=== PATIENT | female | born 1965 | race Caucasian/White ===

== ENCOUNTER 2018-03-31 22:44 | Emergency (ER) | payer OTHER ==
[~2018-03-31] VITALS: Ht 162.6 cm; Wt 65.8 kg
[~2018-03-31 22:44] MED LIST: CIPRO500 MG PO; CYCLOBENZAPRINE5 MG PO; IBUPROFEN600 MG PO; IMITREX25 MG PO; NAPROSYN500 MG PO; NORCO 5-325 TA1 EACH PO; ROBAXIN-750750 MG PO; TRAMADOL HCL50 MG PO; TYLENOL325 MG PO; ZOFRAN4 MG PO
--- OUTSIDE RECORDS SUMMARY | 2018-03-31 22:48 | XMS ---
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 E.Erickson VISIT COUNT (12 MO.) 1 [facility] TOTAL 4 NOTE: Visits indicate total known visits. ED/UCC VISIT TRACKING (12 MO.) 03/31/2018 22:44 [facility] [place] TYPE: Emergency COMPLAINT: - HEADACHE,NAUSEA 01/26/2018 18:44 [facility] [place] TYPE: Emergency DIAGNOSES: - Hand Laceration - Laceration without foreign body of right index finger without damage to nail, initial encounter 12/08/2017 07:43 [facility] [place] [place] TYPE: Emergency COMPLAINT: - PAIN DIAGNOSES: - Unspecified abdominal pain - Urinary tract infection, site not specified - Exposure to other specified factors, initial encounter - Strain of muscle, fascia and tendon of lower back, initial encounter - Nicotine dependence, unspecified, uncomplicated 04[facility]19[facility]2017 12[facility]47 [facility] [place] [facility]: Emergency COMPLAINT: - MUSCLE CRAMPS AND SPASMS DIAGNOSES: - Elevated blood-pressure reading, without diagnosis of hypertension - Muscle spasm of back - Muscle spasm of back - Elevated blood-pressure reading, without diagnosis of hypertension INPATIENT VISIT TRACKING (12 MO.) No inpatient visits to display in this time frame [email or web address]
== END 2018-03-31 23:35 | disposition left against medical advice (07) ==
LOC: ED 22:44
DX: R51 Headache (principal); F17.200 Nicotine dependence, unspecified, uncomplicated
CPT/HCPCS: 99284

== ENCOUNTER 2018-08-05 20:06 | Observation (INO) | payer OTHER ==
[~2018-08-05] VITALS: Ht 162.6 cm; Wt 66.5 kg
--- OUTSIDE RECORDS SUMMARY | ~2018-08-05 | XMS | Clinical Summary ---
Demographics + + + | Address | [address] | | | N | | | [place] [address] | + + + | Home Phone | | + + + | Preferred Language | Unknown | + + + | Marital Status | Single | + + + | Voodoo Affiliation | Unknown | + + + | Race | Unknown | + + + | Ethnic Group | Unknown | + + + Author + + + | Author | [facility] | + + + | Organization | [facility] [employer] | + + + | Address | Unknown | + + + | Phone | Unavailable | + + + Support + + +---------+ + | Name | Relationship | Address | Phone | + + +---------+ + | Jimbo Lin | ECON | Unknown | | + + +---------+ + Care Team Providers + +------+ + | Care Court Officer Name | Role | Phone | + +------+ + | Dr. Fabian | PP | Unavailable | + +------+ + Allergies Not on File Current Medications Not on file Active Problems Not on file Social History + +-------+ +--------+------+ | Tobacco [...] on file | | + + + Plan of Treatment Not on file Results Not on filefrom Last 3 Months"
--- OUTSIDE RECORDS SUMMARY | ~2018-08-05 | XMS | Clinical Summary ---
Demographics + + + | Address | [address] | | | [place] [address] | + + + | Home Phone | | + + + | Preferred Language | Unknown | + + + | Marital Status | Single | + + + | Holiness Affiliation | Unknown | + + + | Race | Unknown | + + + | Ethnic Group | Unknown | + + + Author + + + | Author | [facility] | | | and [place] | + + + | Organization | [facility] | | | and [place] | + + + | Address | Unknown | + + + | Phone | Unavailable | + + + Care Team Providers + +------+ + | Care Tourist Information Officer Name | Role | Phone | [...]
--- OUTSIDE RECORDS SUMMARY | ~2018-08-05 | XMS | Clinical Summary ---
Demographics + + + | Address | [address] | | | N | | | [place] [address] | + + + | Home Phone | | + + + | Preferred Language | Unknown | + + + | Marital Status | Single | + + + | Pentecostalism Affiliation | Unknown | + + + | Race | Unknown | + + + | Ethnic Group | Unknown | + + + Author + + + | Author | [facility] | + + + | Organization | [facility] [facility] | + + + | Address | Unknown | + + + | Phone | Unavailable | + + + Support + + +---------+ + | Name | Relationship | Address | Phone | + + +---------+ + | Jimbo Lin | ECON | Unknown | | + + +---------+ + Care Team Providers + +------+ + | Care Banquet Line Cook Name | Role | Phone | + [...]
--- OUTSIDE RECORDS SUMMARY | ~2018-08-05 | XMS | Clinical Summary ---
Demographics + + + | Address | [address] | | | [place] [address] | + + + | Home Phone | | + + + | Preferred Language | Unknown | + + + | Marital Status | Single | + + + | Jew Affiliation | Unknown | + + + | Race | Unknown | + + + | Ethnic Group | Unknown | + + + Author + + + | Author | [facility] | | | and [place] | + + + | Organization | [facility] | | | and [place] | + + + | Address | Unknown | + + + | Phone | Unavailable | + + + Care Team Providers + +------+ + | Care Signalman Name | Role | Phone | + [...]
--- OUTSIDE RECORDS SUMMARY | ~2018-08-05 | XMS | Clinical Summary ---
Demographics + + + | Address | [address] | | | [place] [address] | + + + | Home Phone | | + + + | Preferred Language | Unknown | + + + | Marital Status | Single | + + + | Episcopal Affiliation | Unknown | + + + | Race | Unknown | + + + | Ethnic Group | Unknown | + + + Author + + + | Author | [facility] | | | and [place] | + + + | Organization | [facility] | | | and [place] | + + + | Address | Unknown | + + + | Phone | Unavailable | + + + Care Team Providers + +------+ + | Care Tool And Gauge Inspector Name | Role | Phone | + [...]
--- OUTSIDE RECORDS SUMMARY | ~2018-08-05 | XMS | Clinical Summary ---
Demographics + + + | Address | [address] | | | N | | | [place] [address] | + + + | Home Phone | | + + + | Preferred Language | Unknown | + + + | Marital Status | Single | + + + | Faith Affiliation | Unknown | + + + | Race | Unknown | + + + | Ethnic Group | Unknown | + + + Author + + + | Author | [facility] | + + + | Organization | [facility] [facility] | + + + | Address | Unknown | + + + | Phone | Unavailable | + + + Support + + +---------+ + | Name | Relationship | Address | Phone | + + +---------+ + | Jimbo Lin | ECON | Unknown | | + + +---------+ + Care Team Providers + +------+ + | Care Computer Systems Hardware Analyst Name | Role | Phone | + [...]
--- OUTSIDE RECORDS SUMMARY | ~2018-08-05 | XMS | Clinical Summary ---
Demographics + + + | Address | [address] | | | [place] [address] | + + + | Home Phone | | + + + | Preferred Language | Unknown | + + + | Marital Status | Single | + + + | Islam Affiliation | Unknown | + + + | Race | Unknown | + + + | Ethnic Group | Unknown | + + + Author + + + | Author | [facility] | | | and [place] | + + + | Organization | [facility] | | | and [place] | + + + | Address | Unknown | + + + | Phone | Unavailable | + + + Care Team Providers + +------+ + | Care Bog Cutter Name | Role | Phone | + [...]
--- OUTSIDE RECORDS SUMMARY | ~2018-08-05 | XMS | Clinical Summary ---
Demographics + + + | Address | [address] | | | N | | | [place] [address] | + + + | Home Phone | | + + + | Preferred Language | Unknown | + + + | Marital Status | Single | + + + | Christianity Affiliation | Unknown | + + + | Race | Unknown | + + + | Ethnic Group | Unknown | + + + Author + + + | Author | [facility] | + + + | Organization | [facility] | + + + | Address | Unknown | + + + | Phone | Unavailable | + + + Support + + +---------+ + | Name | Relationship | Address | Phone | + + +---------+ + | Jimbo Lin | ECON | Unknown | | + + +---------+ + Care Team Providers + +------+ + | Care Sawmill Supervisor Name | Role | Phone | + [...]
--- OUTSIDE RECORDS SUMMARY | 2018-08-05 20:10 | XMS ---
PreManage Notification: ORION TORRES Security Adjustment Clerk Events 1 event(s) in the past 18 months Most recent security events: Elopement at [facility] 03/31/2018 22:44 - Other Details: PATIENT GAYLA LOZANO. CRITERIA MET - Group Notification CARE PROVIDERS SKY [facility] PHONE: Unknown Kayley has no Care Guidelines for this patient. E.D. VISIT COUNT (12 MO.) 1 [facility] 3 [facility]. TOTAL 4 NOTE: Visits indicate total known visits. ED/UCC VISIT TRACKING (12 MO.) 08/05/2018 20:07 [facility] [place] TYPE: Emergency COMPLAINT: - FLANK PAIN 03/31/2018 22:44 [facility] [place] TYPE: Emergency COMPLAINT: - HEADACHE,NAUSEA DIAGNOSES: - Headache - Nicotine dependence, unspecified, uncomplicated 01/26/2018 18:44 [facility] [place] TYPE: Emergency DIAGNOSES: - Hand Laceration - Laceration without foreign body of right index finger without damage to nail, initial encounter 12/08/2017 07:[address] [facility] [place] TYPE: Emergency COMPLAINT: - PAIN DIAGNOSES: - Unspecified abdominal pain - Urinary tract infection, site not specified - Exposure to other specified factors, initial encounter - Strain of muscle, fascia and tendon of lower back, initial encounter - Nicotine dependence, unspecified, uncomplicated INPATIENT VISIT TRACKING (12 MO.) No inpatient visits to display in this time frame [email or web address]
--- NOTE | 2018-08-06 01:27 | NUR ---
RECIEVED REPORT FROM ER NURSE VIA TELEPHONE. ALL QUESTIONS ANSWERED. WAITING FOR PATIENT TO ARRIVE TO THE FLOOR AT THIS TIME.
--- NOTE | 2018-08-06 02:09 | NUR ---
PT ARRIVED TO THE UNIT VIA STRETCHER. RR IS EVEN AND NONLABORED. PT IS IN BED AND ORIENTED TO THE UNIT. HX ADMISSION IS COMPLETE AND CALL LIGHT IS CLOSE. PT DENIES FURTHER NEEDS AT THIS TIME. CALL LIGHT IS WITHIN REACH.
--- NOTE | 2018-08-06 03:55 | NUR ---
INITIAL ASSESSMENT COMPLETE. PT ON RA, VSS. PT DENIES PAIN AT THIS TIME. PT DROWSY, BUT AWAKENS EASILY. RR WNL. NO DISTRESS NOTED. IV FLUIDS INFUSING PER MD ORDERS, IV SITE WNL. PT NPO, LEMON MOUTH SWAB AT BEDSIDE PER PT REQUEST. PT SBA WITH AMBULATION, USES CALL LIGHT APPROPERAITELY. RECENTLY VOIDED X1. PT DENIES ADDITIONAL NEEDS AT THIS TIME, CALL LIGHT IN REACH.
--- NOTE | 2018-08-06 04:40 | NUR ---
ROUNDED ON PT RESTING IN BED WITH EYES CLOSED, RESPIRATORY RATE IS EVEN AND UNLABORED. CALL LIGHT WITHIN REACH. NO SIGNS OF DISTRESS.
--- NOTE | 2018-08-06 06:02 | NUR ---
VITALS AND I&OS DONE AND CHARTED. HELPED PT TO THE BATHROOM AND BACK TO BED. BEDSIDE TABLE AND CALL LIGHT IN REACH. PT NEEDS NOTHING MORE AT THIS TIME.
--- NOTE | 2018-08-06 06:15 | NUR ---
ROUNDED ON PATIENT FOR MEDICATON ADMINISTRATION. PATIENT RESTING IN BED WITH EYES CLOSED, RESPIRATORY RATE IS EVEN AND UNLABORED. PT EASILY AWOKE TO NURSING STAFF TALKING TO PT. PT REPORTS ABD TENDERNESS IN RUQ, REPORTS "8/10" PAIN IN RUQ, PRN PAIN MEDICATION ADMINSTERED PER MAY ORDER. DR. DONOHUE IN ROOM TO VISIT WITH PT. CALL LIGHT WITHIN REACH. NO MORE NEEDS AT THIS TIME. FOCUSED ABD ASSESSMENT COMPLETE.
--- NOTE | 2018-08-06 07:05 | NUR ---
ROUNDED ON PATIENT FOR MEDICATION ADMINISTRATION PER ORDER. REASSESSED PT PAIN TO BE A "4/10" IN RUQ. PT DENIES ANYMORE NEEDS AT THIS TIME. CALL LIGHT WITHIN REACH.
--- NOTE | 2018-08-06 07:45 | NUR ---
Report recieved from Leann GUZMAN.
--- NOTE | 2018-08-06 07:55 | NUR ---
PATIENT RESTING IN BED. CALL LIGHT WITHIN REACH. NO OTHER NEEDS AT THIS TIME
--- NOTE | 2018-08-06 08:20 | NUR ---
PT DROWSY AT THIS TIME, AWAKENS TO VOICE AND ANSWERS QUESTIONS AND FALL RIGHT BACK TO SLEEP. SHE STATES HER PAIN LEVEL IS A 6/10 WHICH SHE STATES IS ACCEPTABLE. CALL LIGHT WITHIN REACH.
--- NOTE | 2018-08-06 09:05 | NUR ---
PATIENT RESTING IN BED. VITAL SIGNS AND I&O DONE. CALL LIGHT WITHIN REACH. NO OTHER NEEDS AT THIS TIME
--- NOTE | 2018-08-06 10:03 | NUR ---
PT GIVEN AN IS AND INSTRUCTED IN IT'S USE. PT USING THE IS AT THIS TIME.
--- NOTE | 2018-08-06 10:12 | CONS ---
[facility] [address], [place] [address] Signed DATE OF CONSULTATION: 08/06/2018 CHIEF COMPLAINT: Abdominal distention and right upper quadrant abdominal pain. HISTORY OF PRESENT ILLNESS: La is a 53-year-old female who is generally healthy except for her smoking. She developed abdominal distention, right upper quadrant abdominal pain. She came to emergency room for evaluation. She was tender in the right upper quadrant with a normal white count. Her liver function tests were unremarkable. Beta-hCG was negative. CT scan of the abdomen and pelvis showed some gallstones and mild pericholecystic fluid. The gallbladder ultrasound confirmed multiple gallstones with gallbladder wall slightly thickened at 4 mm, but an unremarkable common bile duct at 4 mm. Again, some mild pericholecystic fluid and positive Gonzalez sign. Consequently, I was asked to admit her as a general surgeon on-call. Overnight, she has been hydrated and given antibiotics and pain control. However, pain continues. She just had some Dilaudid as I came into the room this morning. PAST MEDICAL HISTORY: Supraumbilical epigastric hernia and migraine headaches. PAST SURGICAL HISTORY: Laparoscopic appendectomy, bilateral tubal ligation, and multiple D and C's. SOCIAL HISTORY: She smokes three-fourth to one pack of cigarettes a day. She does not drink. She has five children. Her 12-year-old son in an ATV accident. 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 She drives and has a front end driver's license. Her optical effects line up person is her daughter, at [phone]. She has no primary care provider. FAMILY HISTORY: Dad had coronary artery disease and had at least two open-heart surgeries. Mom had a hysterectomy for unknown reasons. Daughter is struggling with ovarian cancer. REVIEW OF SYSTEMS: She had 10 systems reviewed and she had nothing specifically new to add. ALLERGIES: None. MEDICATIONS: None. Electronically Signed By: GALE DONOHUE MD 08/06/18 1012 PATIENT NAME: LA TORRES CONSULTATION DATE OF : 61 REPORT #: [id number] PHYSICIAN: GALE DONOHUE MD PCP: NO PRIMARY CARE PHYSICIAN REPORT IS CONFIDENTIAL AND NOT TO BE RELEASED WITHOUT AUTHORIZATION [facility] [address] [place], [place] [address] Signed PHYSICAL EXAMINATION: VITAL SIGNS: Her blood pressure is 134/63, heart rate 70, respiratory rate 17, temperature is 98. She is 96% on room air she is 5 feet 4 inches and 66 kg. GENERAL: La is a 53-year-old female, who is lying supine in her hospital bed. Her nurse is with us in the room. She does not appear systemically ill or toxic. She is not jaundiced. It is clear, she has been a long-time smoker. She does appear older than her stated age. LUNGS: Mildly distant breath sounds. HEART: Regular rate and rhythm. ABDOMEN: Soft and flat, and she just received some Dilaudid and she therefore has mild tenderness in the right upper quadrant. LABORATORY DATA: Her white blood count 5.5, hemoglobin is 11.9, neutrophils 41. Electrolytes unremarkable. Her total bilirubin 0.2, AST 16, ALT 14, alkaline phosphatase 73, albumin 3.9, lipase 32. Beta HCG negative. BUN 16, creatinine 0.8. RADIOGRAPHIC STUDIES: Reviewed. The CT scan showed some gallstones with some trace pericholecystic fluid. Gallbladder ultrasound also showed multiple gallstones with trace pericholecystic fluid along with a 4 mm gallbladder wall, a 4 mm common bile duct and a positive Gonzalez sign. ASSESSMENT AND PLAN: La is a 53-year-old female, who presents with acute cholecystitis cholelithiasis along with some mild anemia. She has been admitted, given IV fluids and antibiotics and pain control. I have reviewed the above findings with her along with the location of function of the gallbladder. We discussed laparoscopic versus open cholecystectomy. She has been through a laparoscopic appendectomy, so she is somewhat familiar with the process. We did review the risks including, but not limited to bleeding, infection, scarring, change in contour the skin, damage to bowel, damage to main bile duct, incisional hernias and other unforeseen comorbidities such as pneumonia, stroke and pulmonary emboli and deep vein thrombosis. We also reviewed the expected intraop and postop course. I also explained that she is in an added on and her surgery will be done quite late today. She may or may not stay overnight depending on the timing. She has expressed understanding and agreed above plan. Gale Donohue MD ALB/MODL /[id number] Electronically Signed By: GALE DONOHUE MD 08/06/18 1012 PATIENT NAME: LA TORRES CONSULTATION DATE OF : 61 REPORT #: [id number] PHYSICIAN: GALE DONOHUE MD PCP: NO PRIMARY CARE PHYSICIAN REPORT IS CONFIDENTIAL AND NOT TO BE RELEASED WITHOUT AUTHORIZATION [facility] [address] [place] [address] Signed cc: Gale Donohue MD Copies: GALE DONOHUE MD ~ Electronically Signed By: GALE DONOHUE MD 08/06/18 1012 PATIENT NAME: LA TORRES CONSULTATION DATE OF : 61 REPORT #: [id number] PHYSICIAN: GALE DONOHUE MD PCP: NO PRIMARY CARE PHYSICIAN REPORT IS CONFIDENTIAL AND NOT TO BE RELEASED WITHOUT AUTHORIZATION
--- NOTE | 2018-08-06 10:15 | NUR ---
PT COMPLAINS OF PAIN AND WAS MEDICATED ORDERD, SEE EMAR. SCD'S PLACED.
[2018-08-06] MEDS ORDERED: IBU-200200 MG PO (11:33)
--- NOTE | 2018-08-06 11:33 | NUR ---
MED REC COMPLETE
--- NOTE | 2018-08-06 12:30 | NUR ---
MEGAN BARNHART VISITED WIT SD REGARDING HOW UPSET PT GOT WHEN INSTRUCTED THAT SHE IS TO HAVE A CHEST X-RAY. FOLLOWED UP WITH PT-SHE WAS SOMEWHAT DROWSY, BUT VISIT WAS POSITIVE,AND ANSWERS WERE ON POINT WITH NO CONFUSION. SHE STATED THAT DR. DONOHUE WILL BE DOING HER SURGERY LATER THIS PM.PT REQUESTED PRAYER WILL FOLLOW NEEDED
--- NOTE | 2018-08-06 12:53 | NUR ---
PATIENT RESTING IN BED. VITAL SIGNS AND I&O DONE. CALL LIGHT WITHIN REACH. NO OTHER NEEDS AT THIS TIME
--- NOTE | 2018-08-06 13:26 | NUR ---
PT STATES SHE HAS A RAMIREZ. SHE STATES SHE NORMALY HAS COFFEE EVERY MORNING WHICH SHE DID NOT HAVE. PT ASKED FOR SOMETHING FOR THE RAMIREZ AND FELL RIGHT BACK TO SLEEP.
--- NOTE | 2018-08-06 14:09 | NUR ---
PT OFF THE FLOOR AND WENT TO SURGERY.
--- NOTE | 2018-08-06 16:20 | NUR ---
08/06/18 1619 Ju[place] Person 1612 PATIENT ARRIVES TO PACU SLEEPING, UNRESPONSIVE TO VERBAL STIMULI. RESP EVEN AND UNLABORED, MASK AT 6 LITERS. 1615 PATIENT OPENS EYES WITH REPEATED VERBAL STIMULI, THEN BACK TO SLEEP. RESP EVEN AND UNLABORED, MASK AT 6 LITERS.
--- NOTE | 2018-08-06 17:26 | NUR ---
1715: PT ARRIVED BACK TO HER ROOM FROM PACU. BEDSIDE REPORT RECIEVED FROM MARIA R GUZMAN. PT AMBULATED WITH ASSIST TO THE BR AND VOIDED 250 ML OF YELLOW URINE. PT HELPED BACK TO BED. INCISION SITE DRESSING CDI WITH ICE IN PLACE. SCD'S PLUGGED BACK IN AND TURNED ON. PT STATES HER PAIN IS "NOT BAD" RATING IT AT A 2/10. VSS AT THIS TIME. PT QUICKLY BACK TO SLEEP.
--- NOTE | 2018-08-06 17:30 | NUR ---
D5LR RESTARTED AT 100 ML ORDERED.
--- NOTE | 2018-08-06 17:33 | EKG ---
[facility] [address] [facility] [place], [place] [address] Signed Sinus bradycardia Otherwise normal ECG No previous ECGs available Confirmed by KENDAL OLIVEIRA DO ([id number]) on 08/06/2018 5:33:05 PM Electronically Signed By: KENDAL OLIVEIRA DO 08/06/18 1733 PATIENT NAME: ORION TORRES Electrocardiogram DATE OF : 61 PHYSICIAN: KENDAL OLIVEIRA DO REPORT #: [id number] REPORT IS CONFIDENTIAL AND NOT TO BE RELEASED WITHOUT AUTHORIZATION
--- NOTE | 2018-08-06 18:19 | NUR ---
PATIENT RESTING IN BED. VITAL SIGNS AND I&O DONE. CALL LIGHT WITHIN REACH. NO OTHER NEEDS AT THIS TIME
--- NOTE | 2018-08-06 18:25 | NUR ---
PT DENIES ANY NAUSEA AFTER HAVING DRANK SOME FLUIDS. SHE WAS GIVEN SOME CRACKERS AND IS NOW EATING THEM.
--- NOTE | 2018-08-06 18:30 | NUR ---
PT WAS NOTIFIED THAT THE ORDER STATES SHE CAN BE DC'D TO HOME TONIGHT OR TOMORROW MORNING. SHE WAS NOTIFIED THAT IF SHE WISHES TO GO HOME TONIGHT SHE SHOULD HAVE A FAMILY MEMBER COME IN AND GUNITE NOZZLE OPERATOR HER SCRIPT AND TAKE IT TO HER RX AND GET IT FILLED WHEN THE RX REMAINS OPEN. SHE STATES SHE IS STILL DECIDING WHAT SHE WILL DO.
--- NOTE | 2018-08-06 18:33 | NUR ---
PT HAD HER LAP MATTI AND EPIGASTIC HERNIA REPAIR TODAY. SHE IS DOING WELL POST-OP WITHOUT COMPLICATIONS AND HER DRESSINGS ARE CDI. DC ORDERS HAVE BEEN RECEIVED FOR THE PT TO GO HOME TONIGHT OR IN THE MORNING.
--- NOTE | 2018-08-06 18:49 | NUR ---
PT RESTING IN HER BED, SHE STATES HER PAIN IS WELL CONTROLED AND SHE DENIES THE NEED FOR ANY PAIN MEDICATIONS AT THIS TIME. PT HAS BEEN TAKING FLUIDS AND CRACKERS AND CONTINUES TO DENIE ANY NAUSEA.
--- NOTE | 2018-08-06 19:00 | NUR ---
CALL LIGHT ANSWERED. PATIENT GOES TO USE BATHROOM. ONE PERSON ASSISTING. PATIENT BACKS TO BED. CALL LIGHT WITHIN REACH. NO OTHER NEEDS AT THIS TIME
--- NOTE | 2018-08-06 19:11 | NUR ---
RECIEVED REPORT FROM BRONWYN GUZMAN. PATIENT LAYING AWAKE IN BED WITH IV FLUIDS INFUSING PER ORDER. PT RATES PAIN A "4-5/10", DENIES WANTING PRN PAIN MEDICATION AT THIS TIME. CALL LIGHT WITHIN REACH. WHITE BOARD UPDATED.
--- NOTE | 2018-08-06 19:40 | NUR ---
ROUNDED ON PATIENT FOR POST OP VITALS, VSS. DRESSING ON ABD IS CDI, SCANT AMOUNT OF SHADOWING PRESENT. PT REPORTS "8/10" PAIN IN ABD, PRN PAIN MEDICATION ADMINISTERED PER ORDER. PT REPORTS FEELING "BLOATED" AND "VERY FULL". ICE IN PLACE. SCDs IN PLACE. CALL LIGHT WITHIN REACH. PT DENIES ANYMORE NEEDS AT THIS TIME.
--- NOTE | 2018-08-06 19:53 | NUR ---
PT'S IV PUMP WAS BEEPING, FIX IT AND PT DENIES FURTHER NEEDS. CALL LIGHT IS WITHIN REACH.
--- NOTE | 2018-08-06 20:53 | NUR ---
ASSISTED PT TO THE RESTROOM, AND BACK TO BED. SHE SAID HER SISTER IS ON HER WAY TO PICK HER UP. PT HAS MET DC CRITERIA, WILL LET PRIMARY RN KNOW.
--- NOTE | 2018-08-06 21:20 | NUR ---
ASSESSMENT COMPLETE. MEDICATIONS ADMINISTERED PER ORDER. PT REPORTS "12/" PAIN IN RIGHT SIDE OF ABD. PRN PAIN MEDICATION ADMINISTERED PER ORDER BY SUPERVISIOR. PT STATED, "I JUST WANT A CIGARETTE", SUPERVISIOR PROVIDED PT WITH SUCKERS/HARD CANDY. PT DECIDED TO STAY THE NIGHT IN HOSPITAL FOR MORE PAIN MANAGEMENT INTERVENTIONS, INSTEAD OF DISCHARGING HOME THIS EVENING. PT VISIBLY UPSET AND CRYING, THERAPEUTIC COMMUNICATION PROVIDED. FAMILY AT BEDSIDE. PT DENIES CHEST PAIN, SHORTNESS OF BREATH OR DIFFICULTY BREATHING. HYPOACTIVE BT NOTED, PT DENIES PASSING FLATUS. DENIES NUMBNESS AND TINGLING IN EXTREMITIES. SCDs IN PLACE. IV FLUIDS INFUSING PER MAR ORDER. DRESSING ON ABD IS CDI, WITH SMALL AMOUNT OF SHADOWING PRESENT. CALL LIGHT WITHIN REACH. PT DENIES ANYMORE NEEDS AT THIS TIME.
--- NOTE | 2018-08-06 21:51 | NUR ---
patients VS and I&Os are complete.
--- NOTE | 2018-08-06 22:43 | NUR ---
ROUNDED ON PATIENT RESTING AWAKE IN BED EATING CRACKERS. NEW ICE PACK AND CHAPSTICK APPLIED TO PATIENT. PT STATES PAIN IS DOING "BETTER" AND RATES PAIN IN RUQ A "5/10". CALL LIGHT WITHIN REACH. PT DENIES ANYMORE NEEDS AT THIS TIME.
--- NOTE | 2018-08-06 22:55 | NUR ---
patient used call light to ask to go to restroom. she resulted and got back into bed and didnt need anything else at this time.
--- NOTE | 2018-08-07 00:08 | NUR ---
ROUNDED ON PT RESTING IN BED WITH EYES CLOSED, REPIRATORY RATE IS EVEN AND UNLABORED. NO SIGNS OF TENSING OR GRIMACING. NEW BAG HUNG OF CONTINOUS IV FLUIDS PER ORDER. CALL LIGHT WITHIN REACH.
--- NOTE | 2018-08-07 00:45 | NUR ---
ASSISTED PT TO THE RESTROOM SBA. SHE IS BACK IN BED AT THIS TIME. WE DISCUSSED KEEPING ON TOP OF HER PAIN MEDICINE TO ENSURE THAT SHE HAS PROPER PAIN CONTROL WITH ORAL MED AND TRYING TO AVOID IV MEDICATIONS. SHE AGREED AND THIS RN NOTIFIED PT'S PRIMARY RN GIULIA. PT DENIES FURTHER NEEDS AT THIS TIME. CALL LIGHT IS CLOSE.
--- NOTE | 2018-08-07 00:50 | NUR ---
ROUNDED ON PATIENT RESTING AWAKE IN BED. PT REPORTS "3/10" PAIN IN ABD, PRN PAIN MEDICATION ADMINSTERED PER ORDER. PUDDING AND CRACKER PROVIDED TO PT BY GRUBBER. PT DISPLAYS IMPROVED SPIRITS AND DEMEANOR. SCDs IN PLACE. CALL LIGHT WITHIN REACH. PT DENIES ANYMORE NEEDS AT THIS TIME.
--- NOTE | 2018-08-07 03:40 | NUR ---
ASSESSMENT COMPLETE. PT DENIES CHEST PAIN, SHORTNESS OF BREATH OR DIFFICULTY BREATHING. PT REPORTS PAIN IN ABD A "10/10", [facility] PAIN MEDICATION ADMINISTERED PER ORDER. HYPOACTIVE BT, PT DENIES PASSING FLATUS, ABD SOFT. SMALL AMOUNT OF SHADOWING PRESENT ON DRESSING. PT DENIES NUMBNESS AND TINGLING IN EXTREMITIES. CLEAR LUNG SOUNDS NOTED, NO SIGNS OF DISTRESS. IV FLUIDS INFUSING PER ORDER. CALL LIGHT WITHIN REACH. PT DENIES NEEDS AT THIS TIME.
--- NOTE | 2018-08-07 05:13 | NUR ---
CHARGE NURSE SYLVESTER AND SUPERVISIOR LAURA AWARE OF PT'S HIGH BLOOD PRESSURES VITALS WERE BEING ASSESSED. SUPERVISIOR LAURA REASSESSED PT'S BLOOD PRESSURE TO BE "196/98" @ 0423. PT REPORTED HAVING "9-10/10", PRN PAIN MEDICATIONS ADMINISTERED. PLAN TO REASSESS PT'S BLOOD PRESSURE AFTER PAIN MANAGMENT INTERVENTIONS TO ASSESS WHETHER ELEVATED BLOOD PRESSURES WERE RELATED TO PAIN. BLOOD PRESSURE REASSESSED AT 0513 TO BE "179/98". PT RATED PAIN A "5/10" AT 0525.
--- NOTE | 2018-08-07 05:25 | NUR ---
ROUNDED ON PATIENT LAYING AWAKE IN BED. PT REPORTS PAIN IS A "5/10". PT DENIES ANY FURTHER NEEDS AT THIS TIME. CALL LIGHT WITHIN REACH.
--- NOTE | 2018-08-07 06:25 | NUR ---
NOTIFIED DR. DONOHUE OF PT'S HIGH BLOOD PRESSURES DURING THE SHIFT AND PT'S PAIN MANAGEMENT. NEW ORDERS FROM DR. DONOHUE TO D/C IV FLUIDS, VERIFIED ORDER VIA READ BACK METHOD.
--- NOTE | 2018-08-07 07:00 | NUR ---
PT SITTING UP IN CHAIR, STATES PAIN IS TOLERABLE AT 2/10 AND STATES SHE WOULD LIKE TO KEEP IT BELOW A 4/10. PT DENIES NEEDS/CONCERNS. BEDSIDE REPORT RECEIVED FROM MEGAN PLATT. CALL LIGHT AND H2O IN REACH.
--- NOTE | 2018-08-07 08:00 | NUR ---
IN TO SEE PATIENT, PT ATE BREAKFAST 100% AND BACK TO BED FROM CHAIR WITH SBA PER HER REQUEST. PT REPORTS PAIN OF 4/10 SO PRN PO NORCO ADMINISTERED. ASSESSMENT COMPLETED. CALL LIGHT AND H2O IN REACH. PT STATES "I HOPE I CAN GO HOME HERE THIS MORNING" DR DONOHUE IN TO ROOM AND CONFIRMS PT MAY DISCHARGE THIS AM. PT REQUESTS WORK NOTE AND DR DONOHUE AGREES TO PROVIDE THIS TO PATIENT. NO FURTHER NEEDS/CONCERNS VOICED.
--- NOTE | 2018-08-07 08:10 | OR ---
[facility] [address] [place], [place] [address] Signed DATE OF OPERATION: 08/06/2018 SURGEON: Gale Martines MD PREOPERATIVE DIAGNOSES: 1. Acute cholecystitis, cholelithiasis. 2. Epigastric hernia (10 mm). POSTOPERATIVE DIAGNOSES: 1. Acute cholecystitis, cholelithiasis. 2. Epigastric hernia (10 mm). PROCEDURE PERFORMED: Laparoscopic cholecystectomy with intraoperative cholangiogram. ESTIMATED BLOOD LOSS: None. FINDINGS: La had a 10 mm epigastric hernia containing incarcerated fat. The gallbladder was somewhat thickened and edematous. She had multiple 8 mm yellow cholesterol stones in the gallbladder. The intraoperative cholangiogram was unremarkable. INDICATIONS: La is a 53-year-old female, who came to emergency room with abdominal distention and right upper quadrant abdominal pain. Laboratory work was not particularly concerning other than some mild anemia. Her anemia panel still pending. CT scan and pelvis was performed and there seemed to be some gallstones with some mild pericholecystic fluid. The gallbladder ultrasound was then done and the gallbladder wall was a little thickened at 4 mm with multiple stones and some pericholecystic fluid and positive Gonzalez sign. The common bile duct was normal at 4 mm. I was asked to admit her as a general surgeon on-call. She has received her Rocephin and Flagyl. She has been hydrated given pain control. I met with La early this morning. I reviewed with her the above findings. We reviewed the location and function of the gallbladder. We reviewed laparoscopic versus open cholecystectomy. She understands expected intraop and postop course. There is risk of surgery including, but not limited to bleeding, infection, scarring, change in contour of the skin, damage to bowel, damage to main bile duct, and incisional hernias. We also reviewed her epigastric hernia and we could place our camera through this and then close it primarily when we were done. She had expressed understanding and wished to proceed. Electronically Signed By: GALE MARTINES MD 08/07/18 0810 PATIENT NAME: LA TORRES OPERATIVE REPORT DATE OF : 61 REPORT #: [id number] PHYSICIAN: GALE MARTINES MD PCP: NO PRIMARY CARE PHYSICIAN REPORT IS CONFIDENTIAL AND NOT TO BE RELEASED WITHOUT AUTHORIZATION [facility] [address] [place], [place] [address] Signed DESCRIPTION OF PROCEDURE: La was taken in to the operating room and placed in the supine position under general endotracheal tube anesthesia. She was on her preoperative antibiotics and subcutaneous heparin. SCDs were utilized. She was then prepped and draped in the usual sterile fashion. We could easily feel her supraumbilical epigastric hernia. A vertical supraumbilical midline incision was made and carried down around the herniated fat. The herniated fat was amputated and passed off the field with the help of cautery. The fascial defect was about 10 mm. The Sofia trocar was placed under direct visualization without difficulty. The abdomen was insufflated and the camera introduced. The remaining trocars were then placed under direct visualization of the camera without difficulty. The gallbladder was then grasped and elevated of the right upper quadrant. Findings are as above. The triangle of Calot was dissected free and the clip was placed on the cystic artery and divided. The intraoperative cholangiocatheter was inserted into the cystic duct. The intraoperative cholangiogram was then performed. The cystic duct stump was secured with a PDS Endoloop and 2 clips were placed across the cystic duct stump to ree its location. After this, the gallbladder was carefully and slowly removed from the gallbladder fossa with the help of the cautery. We noted the edema in the surgical planes. The gallbladder was then placed into an EndoCatch bag. The right upper quadrant was irrigated and suctioned out until clear. We used our laparoscopic suturing device to pass 0 Vicryl suture on either side of the fascia of the subxiphoid trocar site. This was tied down to close this fascia primarily. After this, all the gas was allowed to escape and all trocars were removed along with the gallbladder. The gallbladder was opened on the back table by our circulating nurse. Pictures were taken for photodocumentation. After this, the epigastric hernia fascial defect was closed transversely with a running #1 Prolene suture. Local anesthetic was then copiously injected into all trocar sites. Each trocar site was irrigated and suctioned out until clear. The skin and dermis of each trocar site were closed with interrupted 3-0 subcuticular Monocryl sutures. Dry gauze and tape were applied to all incisions. La was awakened from anesthesia, extubated in the OR, and taken to recovery room in stable condition. Gale Martines MD ALB/MODL /[id number] Electronically Signed By: GALE MARTINES MD 08/07/18 0810 PATIENT NAME: LA TORRES OPERATIVE REPORT DATE OF : 61 REPORT #: [id number] PHYSICIAN: GALE MARTINES MD PCP: NO PRIMARY CARE PHYSICIAN REPORT IS CONFIDENTIAL AND NOT TO BE RELEASED WITHOUT AUTHORIZATION [facility] [address] [place] [place] [address] Signed cc: [facility] Gale Martines MD Copies: GALE MARTINES MD ~ Electronically Signed By: GALE MARTINES MD 08/07/18 0810 PATIENT NAME: LA TORRES OPERATIVE REPORT DATE OF : 61 REPORT #: [id number] PHYSICIAN: GALE MARTINES MD PCP: NO PRIMARY CARE PHYSICIAN REPORT IS CONFIDENTIAL AND NOT TO BE RELEASED WITHOUT AUTHORIZATION
[2018-08-07] MEDS ORDERED: NORCO 7.5-3251 EACH PO (09:06)
[2018-08-07] MEDS ORDERED: TYLENOL325 MG PO (09:08)
== END 2018-08-07 09:15 | disposition home or self-care (01) ==
LOC: ED 20:06 → MS 20:08 → ED 08-06 01:28 → MS 08-06 01:28
PROVIDERS: ADMIT Colon & Rectal Surgery
PROC: BF101ZZ Fluoroscopy of Bile Ducts using Low Osmolar Contrast (ICD-10-PCS; 2018-08-06)
PROC: 0FT44ZZ Resection of Gallbladder, Percutaneous Endoscopic Approach (ICD-10-PCS; principal; 2018-08-06 12:30)
DX: K80.00 Calculus of gallbladder with acute cholecystitis without obstruction (principal); D64.9 Anemia, unspecified; K43.6 Other and unspecified ventral hernia with obstruction, without gangrene; F17.210 Nicotine dependence, cigarettes, uncomplicated
CPT/HCPCS: 00790; 36415; 71046; 74177; 74300; 76705; 80053; 81001; 82607; 82728; 82746; 83540; 83690; 84439; 84443; 84466; 84703; 85025; 85045; 93005; 93010; 96372; 96375; 96376; 99285-25; 99406; G0378; J0330; J0696; J1100; J1170; J1644; J1885; J2405; J2704; J3010; J7030; J7120; Q9967

== ENCOUNTER 2018-08-18 10:52 | Emergency (ER) | payer OTHER ==
[~2018-08-18] VITALS: Ht 162.6 cm; Wt 66.5 kg
--- OUTSIDE RECORDS SUMMARY | ~2018-08-18 | XMS | Clinical Summary ---
Demographics + + + | Address | [address] | | | [place] [address] | + + + | Home Phone | | + + + | Preferred Language | Unknown | + + + | Marital Status | Single | + + + | Yarsani Affiliation | Unknown | + + + | Race | Unknown | + + + | Ethnic Group | Unknown | + + + Author + + + | Author | [facility] | | | and [place] | + + + | Organization | [facility] | | | and [place] | + + + | Address | Unknown | + + + | Phone | Unavailable | + + + Care Team Providers + +------+ + | Care Black Leather Trimmer Name | Role | Phone | + +------+ + PP | Unavailable | + +------+ + Allergies No Known Allergies Medications + + + +---------+------+------+-------+ | Medication | Sig | Dispensed | Refills | Star | End | Statu | | | | | | t | Date | s | | | | | | Date | | | + + + +---------+------+------+-------+ | | Take 5-500 mg by | | 0 | 09/1 | | Activ | | HYDROcodone-acetamin | mouth every 6 hours | | | 4/20 | | e | | ophen (VICODIN) | as needed. | | | 12 | | | | 5-500 mg per tablet | | | | | | | + + + +---------+------+------+-------+ Active Problems + + + | Problem | Noted Date | + + + | ABDOMINAL PAIN, GENERALIZED | | + + + Social History + +-------+ +--------+------+ | Tobacco Use | Types | Packs/Day | Years | Date | | | | | Used | | + +-------+ +--------+------+ | Never Assessed | | | | | + +-------+ +--------+------+ + + + | Sex Assigned at | Date Recorded | | | | + + + | Not on file | | + + + + + + + | Job Start Date | Occupation | Industry | + + + + | Not on file | Not on file | Not on file | + + + + + + + + | Travel History | Travel Start | Travel End | + + + + + + | No recent travel history available. | + + Last Filed Vital Signs + + + + | Vital Sign | Reading | Time Taken | + + + + | Blood Pressure | 180/117 | 07/18/2010 0000 PDT | + + + + | Pulse | - | - | + + + + | Temperature | - | - | + + + + | Respiratory Rate | - | - | + + + + | Oxygen Saturation | - | - | + + + + | Inhaled Oxygen | - | - | | Concentration | | | + + + + | Weight | 62.1 kg (137 lb) | 07/18/2010 0000 PDT | + + + + | Height | 162.6 cm (5' 4") | 07/18/2010 0000 PDT | + + + + | Body Mass Index | 23.52 | 07/18/2010 0000 PDT | + + + + Plan of Treatment + + + + + | Health Maintenance | Due Date | Last Done | Comments | + + + + + | Vaccine: | | | | | Dtap/Tdap/Td (1 - | 2 | | | | Tdap) | | | | + + + + + | Cervical Cancer | | | | | Screening (Pap) | 3 | | | + + + + + | Vaccine: Zoster (1 | | | | | of 2) | 3 | | | + + + + + | Vaccine: Influenza | | | | | (Season Ended) | 9 | | | + + + + + Results Not on filefrom Last 3 Months
--- OUTSIDE RECORDS SUMMARY | ~2018-08-18 | XMS | Clinical Summary ---
Demographics + + + | Address | [address] | | | N | | | [place] [address] | + + + | Home Phone | | + + + | Preferred Language | Unknown | + + + | Marital Status | Single | + + + | Cheondoism Affiliation | Unknown | + + + | Race | Unknown | + + + | Ethnic Group | Unknown | + + + Author + + + | Author | [facility] | + + + | Organization | [facility] | + + + | Address | Unknown | + + + | Phone | Unavailable | + + + Support + + +---------+ + | Name | Relationship | Address | Phone | + + +---------+ + | Jimbo Lin | ECON | Unknown | | + + +---------+ + Care Team Providers + +------+ + | Care Access Lead Name | Role | Phone | + [...]
--- OUTSIDE RECORDS SUMMARY | ~2018-08-18 | XMS | Clinical Summary ---
Demographics + + + | Address | [address] | | | N | | | [place] [address] | + + + | Home Phone | | + + + | Preferred Language | Unknown | + + + | Marital Status | Single | + + + | Jainism Affiliation | Unknown | + + + | Race | Unknown | + + + | Ethnic Group | Unknown | + + + Author + + + | Author | [facility] | + + + | Organization | [facility] | + + + | Address | Unknown | + + + | Phone | Unavailable | + + + Support + + +---------+ + | Name | Relationship | Address | Phone | + + +---------+ + | Jimbo Lin | ECON | Unknown | | + + +---------+ + Care Team Providers + +------+ + | Care Hosiery Mender Name | Role | Phone | + [...]
--- OUTSIDE RECORDS SUMMARY | ~2018-08-18 | XMS | Clinical Summary ---
Demographics + + + | Address | [address] | | | [place] [address] | + + + | Home Phone | | + + + | Preferred Language | Unknown | + + + | Marital Status | Single | + + + | Caodaism Affiliation | Unknown | + + + | Race | Unknown | + + + | Ethnic Group | Unknown | + + + Author + + + | Author | [facility] | | | and [place] | + + + | Organization | [facility] | | | and [place] | + + + | Address | Unknown | + + + | Phone | Unavailable | + + + Care Team Providers + +------+ + | Care Viscera Washer Name | Role | Phone | + [...]
[~2018-08-18 10:52] MED LIST changes: +IBU-200200 MG PO; +NORCO 7.5-3251 EACH PO
--- OUTSIDE RECORDS SUMMARY | 2018-08-18 10:56 | XMS ---
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 CRITERIA MET - Group Notification - [facility] - Has Care Guidelines - [facility] - 2 Visits in 30 Days CARE PROVIDERS [facility] PHONE: Unknown Kayley has no Care Guidelines for this patient. Care History Medical/Surgical 08/09/2018 [facility] CASE MANAGEMENT REFERRAL MADE- PATIENT HAS [facility] AND NO PCP. E.D. VISIT COUNT (12 MO.) 1 [facility] 4 [facility]. TOTAL 5 NOTE: Visits indicate total known visits. ED/UCC VISIT TRACKING (12 MO.) 08/18/2018 10:53 [facility] TYPE: Emergency COMPLAINT: - HEADACHE 08/05/2018 20:07 [facility] TYPE: Emergency COMPLAINT: - ACUTE CHOLECYSTITS 03/31/2018 22:44 [facility] TYPE: Emergency COMPLAINT: - HEADACHE,NAUSEA DIAGNOSES: - Headache - Nicotine dependence, unspecified, uncomplicated 01/26/2018 18:44 [facility] [place] TYPE: Emergency DIAGNOSES: - [...] unspecified, uncomplicated INPATIENT VISIT TRACKING (12 MO.) 08/05/2018 20:08 [facility] [place] TYPE: Observation COMPLAINT: - ACUTE CHOLECYSTITS DIAGNOSES: - Unspecified abdominal pain - Other and unspecified ventral hernia with obstruction, without gangrene - Anemia, unspecified - Calculus of gallbladder with acute and chronic cholecystitis without obstruction - Nicotine dependence, cigarettes, uncomplicated - Calculus of gallbladder with acute cholecystitis without obstruction [email or web address]
[2018-08-18] MEDS ORDERED: FIORINAL 50-321 EACH PO (11:48)
== END 2018-08-18 11:58 | disposition home or self-care (01) ==
LOC: ED 10:52
DX: G43.909 Migraine, unspecified, not intractable, without status migrainosus (principal); F17.200 Nicotine dependence, unspecified, uncomplicated
CPT/HCPCS: 96374; 99283-25; 99406; J1200; J1885

== ENCOUNTER 2020-02-14 04:11 | Emergency (ER) | payer SELFPAY ==
[~2020-02-14] VITALS: Ht 162.6 cm; Wt 66.5 kg
[~2020-02-14 04:11] MED LIST changes: +FIORINAL 50-321 EACH PO
--- OUTSIDE RECORDS SUMMARY | 2020-02-14 04:14 | XMS ---
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 Kayley has no Care Guidelines for this patient. Care History Medical/Surgical 08/09/2018 [facility] CASE MANAGEMENT REFERRAL MADE- PATIENT HAS [facility] AND NO PCP. E.D. VISIT COUNT (12 MO.) 1 [facility] TOTAL 1 NOTE: Visits indicate total known visits. ED/UCC VISIT TRACKING (12 MO.) [facility] COMPLAINT: - MOUTH SWOLLEN,TOOTH PAIN INPATIENT VISIT TRACKING (12 MO.) No inpatient visits to display in this time frame [email or web address]
[2020-02-14] MEDS ORDERED: CLINDAMYCIN HC300 MG PO (04:27)
[2020-02-14] MEDS ORDERED: NORCO 5-325 TA1 EACH PO (04:27)
== END 2020-02-14 04:41 | disposition home or self-care (01) ==
LOC: ED 04:11
DX: K02.9 Dental caries, unspecified (principal); G43.909 Migraine, unspecified, not intractable, without status migrainosus; F17.200 Nicotine dependence, unspecified, uncomplicated
CPT/HCPCS: 99282